=== PATIENT | male | born 1945 | race Caucasian/White ===

== ENCOUNTER 2018-10-07 11:09 | Day surgery (SDC) | payer OTHER, MEDICARE ==
[~2018-10-07] VITALS: Ht 185.4 cm; Wt 103.5 kg
[2018-10-07] MEDS ORDERED: HCTZ 25MG TAB25 MG PO (11:43)
[2018-10-07] MEDS ORDERED: HYTRIN 5MG C5 MG/CAP PO (11:43)
[2018-10-07] MEDS ORDERED: LOPRESSOR 550 MG/TAB PO (11:44)
[2018-10-07] MEDS ORDERED: CRESTOR 10MG10 MG PO (11:44)
[2018-10-07 12:21] LABS: BASO % 0.4 % (0.0-2.0); EOS % 0.2 % (0-4.0); GRAN # 6.6 (1.4-6.5); HEMATOCRIT 45.6 % (42.0-52.0); HEMOGLOBIN 16.3 g/dl (13.5-18.0); LYMPH # 0.9 (1.2-3.4); LYMPH % 11.3 % (20.0-51.0); MEAN CELL VOLUME 90 fl (80.0-100.0); MEAN CORPUSCULAR HEMOGLOBIN 32 pg (27.0-31.0); MEAN CORPUSCULAR HGB CONC 36 g/dl (33.0-37.0); MEAN PLATELET VOLUME 12.1 fl (7.4-10.4); MONO # 0.7 (0.1-0.6); MONO % 7.9 % (1.7-9.3); PLATELET COUNT 149 K/mm3 (130-400); RED BLOOD COUNT 5.05 M/mm3 (4.20-5.60); REDCELL DISTRIBUTION WIDTH-CV 12.8 % (11.5-14.5)
[2018-10-07 12:32] LABS: ALANINE AMINOTRANSFERASE 25 U/L (21-72); ALBUMIN 4.1 gm/dL (3.5-5.0); ALKALINE PHOSPHATASE 111 U/L (50-136); ANION GAP 8 mmol/L (7-16); AST,SGOT 32 U/L (15-37); BILIRUBIN,TOTAL 1.3 mg/dL (0.0-1.0); BLOOD UREA NITROGEN 18 mg/dL (9-20); C-REACTIVE PROTEIN 0.7 mg/dL (0.0-0.9); CALCIUM 9.3 mg/dL (8.4-10.2); CARBON DIOXIDE 27 mmol/L (22-30); CHLORIDE 103 mmol/L (98-107); CREATININE, serum 1.06 (0.66-1.25); GLUCOSE 127 mg/dL (74-106); LIPASE 85 U/L (23-300); POTASSIUM 3.6 mmol/L (3.4-5.0); SODIUM 139 mmol/L (137-145); TOTAL PROTEIN 7.7 gm/dL (6.4-8.2)
[2018-10-07 12:41] LABS: TROPONIN-I < 0.012 ng/mL (0.000-0.035)
[2018-10-07 12:46] LABS: COLLECTION METHOD CLEAN CATCH
[2018-10-07 12:54] LABS: MUCOUS Present /lpf; PH 6 (5-8); SQUAMOUS EPITHELIAL 0-2 /hpf; URINE APPEARANCE Clear; URINE BACTERIA None Seen /hpf; URINE BILIRUBIN Negative (NEGATIVE); URINE BLOOD Negative (NEGATIVE); URINE COLOR Amber; URINE GLUCOSE Negative (NEGATIVE); URINE KETONE Trace (NEGATIVE); URINE LEUKOCYTE ESTERASE Negative (NEGATIVE); URINE NITRATE Negative (NEGATIVE); URINE PROTEIN(semi-quant) 1+ (NEGATIVE); URINE RBC 0-2 /hpf; URINE UROBILINOGEN >=4.0 mg/dL (NEGATIVE)
--- NOTE | 2018-10-07 16:30 | NUR ---
PATIENT ARRIVED TO ROOM 350 VIA WHEELCHAIR FROM ED. PATIENT SETTELED INTO ROOM.
[2018-10-07 16:40] VITALS: BP 152/72; PULSE 54; TEMP 97.8
--- NOTE | 2018-10-07 17:26 | NUR ---
PATIENT CONSENT FORM FOR SUGERY SIGNED AND ON PATIENT CHART.
[2018-10-07] MEDS ORDERED: OSTEO-BI-FLEX 21 TAB PO (18:31)
--- NOTE | 2018-10-07 18:32 | NUR ---
PATIENT 5-PAGE COMPLETE. SEE ADMISSION ASSESSMENT. IV FLUIDS INFUSING TO LEFT FOREARM IV VIA PUMP. CLEAR LIQUIDS TRAY ORDERED FOR DINNER. NPO AT MIDNIGHT SIGN OUTSIDE PATIENT ROOM.
--- NOTE | 2018-10-07 19:00 | NUR ---
REPORT GIVEN TO HEIDY BLANTON.
[2018-10-07 19:33] VITALS: BP 144/60; PULSE 58; TEMP 97
[2018-10-07 23:29] VITALS: BP 117/50; PULSE 52; TEMP 97.9
[2018-10-08] VITALS (12 sets, daily range): BP systolic 112–176; BP diastolic 52–96; PULSE 52–66; TEMP 97.6–98.6
--- NOTE | 2018-10-08 08:20 | NUR ---
PATIENT IS DROWSY AND RESTING IN BED THIS MORNING. PATIENT IS A&OX4. VSS. SEE MORNING ASSESSMENT. PATIENT SHOWERED WITH PRE-OP SCRUB. TEETH BRUSHED. PRE-OP MEDICATIONS GIVEN. LR TO GRAVITY FLOW TUBING INFUSING TO LEFT FOREARM IV. CONSENT FORM ON PATIENT CHART. PATIENT TAKEN TOPERI-OP VIA BED BY HEIYD NEWBY. WILL WAIT FOR ARRIVAL BACK TO ROOM 350.
--- NOTE | 2018-10-08 12:00 | NUR ---
PATIENT ARRIVED BACK TO ROOM 350 VIA BED FROM PACU. PATIENT SLIGHTLY DROWSY. POST-OP VITAL SIGNS STABLE. ABDOMINAL LAP SITES X2 DEBURRER WITH EDGES WELL APPROXIMATED AND GONCALVES SET IN PLACE. HARLAN DRAIN TO BULB SUCTION. HARLAN INCISION SITE DRESSED WITH GAUZE AND HYPAFIX AND IS CD&I. PATIENT TOLERATING WATER AND ICE CHIPS WITHOUT COMPLAINTS OF N/V. WILL CONTINUE TO MONITOR.
--- NOTE | 2018-10-08 12:45 | NUR ---
PATIENT TOLERATING A GENERAL DIET WITHOUT COMPLAINTS OF N/V. WILL CONTINUE TO MONITOR.
--- NOTE | 2018-10-08 14:39 | NUR ---
NOHELIA student met with patient to discuss discharge plan. Patient lives in [place] with his (Nilda). Also present was patient's son (Giovanni). Patient's PCP is at [facility] in [place] and he uses the [facility] in [place]. Patient has started to use a can more often at home but reports independence with ADLs. Patient believes he has a DPOA-HC and Living Will at home. was going to look for it and bring it up next time she comes in. DPOA-HC designates his (Nilda) as primary and secondary are his two sons. Patient inquired about insurance and wanted to make sure that hospital billed only primary first. NOHELIA student checked with financial counselor, Jazmin, who confirmed that hospital only bills the primary first. Patient plans to return home with upon discharge. NOHELIA does not anticipate any discharge needs at this time.
--- NOTE | 2018-10-08 15:45 | NUR ---
POST-OP VITAL SIGNS STABLE AND COMPLETE. PATIENT DENIES ANY NEEDS AT THIS TIME.
--- NOTE | 2018-10-08 18:06 | NUR ---
pt was visited by and son. Pt ambulated to and from bathroom. call light within reach. reported off to HEIDY Werner
--- NOTE | 2018-10-08 18:46 | NUR ---
REPORT GIVEN TO HEIDY BARFIELD.
--- NOTE | 2018-10-08 19:32 | NUR ---
Patient resting in bed, assessment completed- lungs clear, abdominal sounds active, pulses +3, cap refill <3 seconds. SCD's put back on. HARLAN drain- red tinged, bulb suction. Reports some mild pain around drain site- asked for pain medications along with evening medications. No further needs at this time.
[2018-10-09 00:18] VITALS: BP 160/67; PULSE 54; TEMP 98.3
[2018-10-09 03:55] VITALS: BP 143/49; PULSE 55; TEMP 97.9
--- NOTE | 2018-10-09 05:11 | NUR ---
Pt slept on/off last night. Reported some pain this morning, given ibuprofen which helped control pain last night. HARLAN in place. VSS. No further needs at this time.
[2018-10-09 06:20] LABS: ALBUMIN 3.6 gm/dL (3.5-5.0); BILIRUBIN,TOTAL 0.9 mg/dL (0.0-1.0); CALCIUM 9.3 mg/dL (8.4-10.2); CREATININE, serum 1.13 (0.66-1.25); POTASSIUM 3.8 mmol/L (3.4-5.0); TOTAL PROTEIN 6.8 gm/dL (6.4-8.2)
--- NOTE | 2018-10-09 07:26 | NUR ---
Report given to HEIDY Chen.
[2018-10-09 09:05] VITALS: BP 173/59; PULSE 56; TEMP 98.1
--- NOTE | 2018-10-09 10:53 | NUR ---
Patient resting in bed upon assessment. States he has intermittment pain on the left side of his abdomen that is worse with movement. Has dull incision pain around his lap sites in addition. Patient has denied the need for pain medication stating that the pain comes and goes and is tolerable at this time. Plan for dishcarge today. Will discharge with HARLAN drain in and have it removed at the clinic on Thursday during his follow-up appointment. Clinic faxed with info to schedule follow-up appointment. Ok to shower with HARLAN drain per Dr. Felton. Education provided on how to care for and drain HARLAN drain.
--- NOTE | 2018-10-09 11:40 | NUR ---
Patient was not in her room.
--- NOTE | 2018-10-09 12:11 | NUR ---
Patient discharged to home with his and son at 1200. All discharge instructions reviewed with patient and his and sent home with them. Phone number for billing sent with patient as he was concerned about the [facility] being [facility]- he only wants the [facility] billed not medicare. Patient states they did talk with other hospital personnel about this during his stay. Script for [place] given to patient. Patient wheeled out to car in a wheelchair.
== END 2018-10-09 12:00 | disposition home or self-care (01) ==
LOC: COL.ER 11:09 → SURG 15:27 → COL.AMSURD 15:27 → SURG 15:45 → COL.AMSURD 10-09 12:00
PROVIDERS: Nurse Practitioner; Surgery
DX: K82.A2 Perforation of gallbladder in cholecystitis (principal); K80.10 Calculus of gallbladder with chronic cholecystitis without obstruction; I10 Essential (primary) hypertension; E78.5 Hyperlipidemia, unspecified; Z87.891 Personal history of nicotine dependence; Z79.899 Other long term (current) drug therapy
CPT/HCPCS: OP; J0690; J1100; J1956; J2270; J2405; J2704; J3010; J7030; J7120; Q9967

== ENCOUNTER 2023-05-06 13:18 | Outpatient (RCR) | payer OTHER ==
[~2023-05-06 13:18] MED LIST: ASPIRIN E.C. 8181 MG PO; BRILINTA90 MG PO; CRESTOR 10MG10 MG PO; FLONASEALLERGY NS; HCTZ 25MG TAB25 MG PO; HYTRIN 5MG C5 MG/CAP PO; IMDUR 30MG30 MG/TAB PO; LIPITOR 80MG80 MG PO; LOPRESSOR 550 MG/TAB PO; NAPROSYN 2250 MG/TAB PO; OSTEO-BI-FLEX 21 TAB PO; PEPCID40 MG PO
== END 2023-05-07 | disposition home or self-care (01) ==
LOC: COL.CR
DX: Z48.812 Encounter for surgical aftercare following surgery on the circulatory system (principal); Z95.5 Presence of coronary angioplasty implant and graft

== ENCOUNTER 2023-06-05 14:54 | Outpatient (RCR) | payer OTHER | END 2023-06-07 | disposition home or self-care (01) | LOC: COL.CR | DX: I73.9 Peripheral vascular disease, unspecified (principal) ==

== ENCOUNTER → 2023-07-08 | Outpatient (RCR) | payer OTHER | END | disposition home or self-care (01) | LOC: COL.CR | DX: R94.31 Abnormal electrocardiogram [ECG] [EKG] (principal) ==

== ENCOUNTER 2023-08-05 15:40 | Outpatient (RCR) | payer OTHER | END 2023-08-06 | disposition home or self-care (01) | LOC: COL.CR | DX: R94.31 Abnormal electrocardiogram [ECG] [EKG] (principal) ==

== ENCOUNTER → 2024-03-08 | Outpatient (REF) | payer OTHER ==
[~2024-03-08] MED LIST changes: +ALKA-SELTZER HE1 TEF PO; +COZAAR 25MG25 MG/TAB PO; +CRESTOR5 MG PO; +IMDUR 60MG60 MG/TAB PO; +LOPRESSOR 225 MG/TAB PO; +SYNTHROID0.088 MG/T PO
== END ==
LOC: ZCOL.LAB 16:16
DX: J32.9 Chronic sinusitis, unspecified (principal)